=== PATIENT | male | born 1965 | race Caucasian/White ===

== ENCOUNTER 2017-03-12 10:44 | Day surgery (SDC) | payer MEDICARE, OTHER ==
[~2017-03-12 10:44] MED LIST: Pre Op ABX Message 1 EACH MISC MISCELLANE ONE
[2017-03-12] MEDS ORDERED: HYDROmorphone 1 MG/ML 1 ML SYRINGE IVP PRN (13:18)
[2017-03-12] MEDS ORDERED: LACTATED RINGERS 1,000 ML IV SCH (13:18)
[2017-03-12] MEDS ORDERED: LIDOCAINE 1% 20 ML VIAL (10MG/ML) FOR IV START INTRADERMA PRN (13:18)
[2017-03-12] MEDS ORDERED: DEXAMETHASONE SOD PHOSPHATE 10 MG/ML 1 ML VIAL IV ONE (13:18)
[2017-03-12] MEDS ORDERED: SCOPOLAMINE 1.5MG/72HR PATCH TRANSDERM ONE (13:18)
[2017-03-12] MEDS ORDERED: ONDANSETRON 4 MG/2 ML VIAL IVP ONE (13:18)
[2017-03-12] MEDS ORDERED: MIDAZOLAM 2 MG/2 ML VIAL IV PRN (13:18)
[2017-03-12 13:32] VITALS: RESP 16
[2017-03-12] MEDS ORDERED: ceFAZolin 2 GM in SODIUM CHLORIDE 0.9% 100 ML IVPB ONE (14:34)
[2017-03-12] MEDS ORDERED: PROPOFOL 10 MG/ML 20 ML VIAL IV ONE (15:30)
[2017-03-12] MEDS ORDERED: fentaNYL (PF) 50 MCG/ML 2 ML AMP ONE (15:30)
[2017-03-12] MEDS ORDERED: SUCCINYLCHOLINE CHLORIDE VIAL 200 MG/10 ML VIAL IV ONE (15:30)
[2017-03-12] MEDS ORDERED: KETOROLAC 30 MG/ML 1 ML VIAL ONE (15:30)
[2017-03-12] MEDS ORDERED: HYDROmorphone (PF) 1 MG/ML ONE (15:30)
[2017-03-12] MEDS ORDERED: GLYCOPYRROLATE 0.2 MG/ML 2 ML VIAL ONE (15:30)
[2017-03-12] MEDS ORDERED: LIDOCAINE 1% INJ 10MG/ML (20 ML MDV) ONE (15:30)
[2017-03-12] MEDS ORDERED: MIDAZOLAM 2 MG/2 ML VIAL ONE (15:30)
[2017-03-12] MEDS ORDERED: BUPIVACAINE (PF) 0.5% 30 ML VIAL INTRAARTIC ONE (16:01)
--- NOTE | 2017-03-12 16:33 | P.OP ---
Date of Procedure: 03/12/17 Preoperative Diagnosis: Torn medial meniscus right knee Postoperative Diagnosis: 1. Torn medial meniscus right knee 2. 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 3. Synovitis right knee Procedure(s) Performed: 1. Arthroscopy of the right knee with partial medial meniscectomy (25% of the meniscus removed) 2. Chondroplasty Medialfemoral and Patellafemoral compartments 3. Partial synovectomy of the medial femoral, lateral femoral, and patellofemoral compartments. Anesthesia: GETA Surgeon: Colt Tuttle Estimated Blood Loss (ml): 10 Pathology: none sent Condition: stable Disposition: PACU Indications for Procedure: This is a 52-year-old gentleman that was seen by me in the office for persistent pain in his right knee. An MRI demonstrated torn medial meniscus. After failure of conservative treatment, we discussed the surgical and nonsurgical treatment options with him at length. He wishes to proceed with arthroscopic debridement of his right knee, and informed consent was obtained. Operative Findings: The operative findings are consistent with a torn medial meniscus of the right knee. Description of Procedure: Patient was seen and evaluated in the preoperative area, the operative site was marked with a skin marker. The patient was then brought to the operating room and given 2 g of Ancef intravenously. A general anesthetic was administered by the anesthesia department. Tourniquet was placed on the right upper thigh and the right lower extremity was then prepped and draped in usual sterile fashion. A universal timeout was then performed confirming the patient's name, surgical site, ALLERGIES, and consent. The limb was then exsanguinated and tourniquet insufflated to 250 mmHg. Standard inferior medial and inferior lateral portals were established and the knee. The trochar was inserted into the inferolateral portal. Examination began at the patellofemoral joint. There is noted to be grade 2 chondral malacia the patellofemoral compartment and a moderate amount of synovitis. Next the medial compartment was visualized. There was a tear of the posterior horn of the medial meniscus. There was grade 2 chondral malacia the mediofemoral compartment and synovitis. The notch area was then visualized and ACL PCL were intact. Lateral compartment was then visualized there was no tear of the lateral meniscus or chondral malacia changes. There was a mild amount of synovitis. Next, using an arthroscopic shaver and a biter, a partial mediall meniscectomy was performed stable margins (approximately 25% of the posterior horn was removed). A partial synovectomy is performed the medial femoral, lateral femoral, patellofemoral compartments. Chondroplasty was also performed of the medial femoral, and patellofemoral compartments of the knee. The knee was then copiously irrigated, instruments removed, incisions were closed with 4-0 nylon. 30 mL of quarter percent plain Marcaine was injected sterilely into the surgical area. A sterile dressing was then applied, and the tourniquet was released. Patient was then transferred to recovery room in stable condition.
[2017-03-12 16:41] VITALS: TEMP 97.2
[2017-03-12] MEDS ORDERED: HYDROcodone/APAP 7.5-325MG 1 EACH TAB PO ONE (17:18)
[2017-03-12 17:29] VITALS: BP 145/90; PULSE 65
== END 2017-03-12 17:46 | disposition home or self-care (01) ==
LOC: OR 10:44
PROVIDERS: ATTEND Orthopaedic Surgery
DX: S83.241A Other tear of medial meniscus, current injury, right knee, initial encounter (principal); W19.XXXA Unspecified fall, initial encounter; M22.41 Chondromalacia patellae, right knee; M65.9 Synovitis and tenosynovitis, unspecified; F41.9 Anxiety disorder, unspecified; I10 Essential (primary) hypertension; N40.0 Benign prostatic hyperplasia without lower urinary tract symptoms; K21.9 Gastro-esophageal reflux disease without esophagitis; Z87.891 Personal history of nicotine dependence; E78.5 Hyperlipidemia, unspecified; Z79.82 Long term (current) use of aspirin; Z79.899 Other long term (current) drug therapy
CPT/HCPCS: 29881; J2250; J0330; J1100; J0690; J2405; J2001; J3010; J1885; J1170; J2704

== ENCOUNTER 2021-11-08 09:38 | Day surgery (SDC) | payer MEDICARE, OTHER ==
[2021-11-07 09:03] VITALS: BMI 34.2
[~2021-11-08 09:38] MED LIST changes: +LACTATED RINGERS 1,000 ML IV SCH; +LIDOCAINE 1% (10MG/ML) FOR IV START INTRADERMA PRN; -Pre Op ABX Message 1 EACH MISC MISCELLANE ONE
[2021-11-08 10:28] VITALS: TEMP 98.2
[2021-11-08] MEDS ORDERED: LIDOCAINE 1% (10MG/ML) FOR IV START INTRADERMA ONE (10:30)
[2021-11-08] MEDS ORDERED: PROPOFOL 10 MG/ML 20 ML VIAL IV ONE (11:30)
[2021-11-08] MEDS ORDERED: LIDOCAINE 1% INJ 10MG/ML (20 ML MDV) ONE (11:30)
--- NOTE | 2021-11-08 11:46 | P.PCN ---
Date of Procedure: 11/08/21 Procedure(s) Performed: BRIEF HISTORY: Patient is a 56-year-old, pleasant, white male scheduled for an upper endoscopy as a part of evaluation of chronic epigastric pain for the last 15 years duration. He does have long-standing history of GERD and has been on Prevacid 30 mg twice daily.. PROCEDURE PERFORMED: Esophagogastroduodenoscopy with biopsy. PREOPERATIVE DIAGNOSIS: Chronic epigastric pain and Long-standing history of GERD. IV sedation per anesthesia. PROCEDURE: After informed consent was obtained, the patient was brought into the endoscopy unit. IV sedation was administered by Anesthesia under continuous monitoring. Initially the Olympus GIF-140 video endoscope was inserted into the mouth. Esophagus intubated without any difficulty. It was gradually advanced into the stomach and duodenum and carefully examined. The bulb and the second part of the duodenum appeared normal. The scope at this time was withdrawn to the stomach, adequately insufflated with air, and upon careful examination, mucosa of the antrum, had mild gastritis and biopsies were done from this area. The body, cardia and the fundus appeared normal. The scope was then withdrawn into the esophagus. The GE junction was located at 46 cm from the incisors. All sliding type hiatal hernia noted. There was short tongue of Whitehead's appearing mucosa extending to 3 mm proximal to the GE junction and this was biopsied. The rest of the esophagus appeared normal. There were no erosions or ulcerations seen and the patient tolerated the procedure well. IMPRESSION: 1. Mild antral gastritis. 2. Small hiatal hernia 3. Short segment Whitehead's esophagus. RECOMMENDATIONS: The findings of this examination were discussed with the patient as well as his family. He was advised to follow with the biopsy results. He will continue with Prevacid 30 mg twice daily and follow antireflux measures. If the biopsy confirms the presence of Whitehead's esophagus he can have a repeat upper endoscopy in 3 years..
[2021-11-08 11:50] VITALS: RESP 16
[2021-11-08 12:04] VITALS: BP 162/87; PULSE 66
== END 2021-11-08 12:15 | disposition home or self-care (01) ==
LOC: ORWHC2ENDO 09:38
PROVIDERS: ATTEND Internal Medicine Gastroenterology
DX: R10.13 Epigastric pain (principal); K29.50 Unspecified chronic gastritis without bleeding; K21.00 Gastro-esophageal reflux disease with esophagitis, without bleeding; K44.9 Diaphragmatic hernia without obstruction or gangrene; K22.70 Barrett's esophagus without dysplasia; I10 Essential (primary) hypertension; E78.5 Hyperlipidemia, unspecified; M19.90 Unspecified osteoarthritis, unspecified site; Z79.891 Long term (current) use of opiate analgesic; Z79.82 Long term (current) use of aspirin; Z79.899 Other long term (current) drug therapy; Z91.030 Bee allergy status
CPT/HCPCS: 43239; J2001; J2704; 88305